=== PATIENT | male | born 1960 | race Caucasian/White ===

== ENCOUNTER → 2019-10-15 15:40 | Outpatient (BNVA) | payer BC, SELFPAY | PROVIDERS: PCP Family Medicine; Visit Provider Urology | DX: N40.1 Benign prostatic hyperplasia with lower urinary tract symptoms (principal) | CPT/HCPCS: 81001 ==

== ENCOUNTER → 2020-10-13 10:22 | Outpatient (BNVA) | payer BC, SELFPAY | PROVIDERS: PCP Family Medicine; Visit Provider Urology | DX: Z12.5 Encounter for screening for malignant neoplasm of prostate (principal); N40.1 Benign prostatic hyperplasia with lower urinary tract symptoms; R33.9 Retention of urine, unspecified | CPT/HCPCS: 81003; G0103 ==

== ENCOUNTER 2021-05-24 15:51 | Outpatient (CLI) | payer OTHER, SELFPAY ==
--- NOTE | 2021-05-24 15:55 | MR_ITS ---
WS: [id number] MRI RIGHT SHOULDER NONCONTRAST TECHNIQUE: Sagittal T2, coronal T1, T2 and proton density imaging. Axial gradient PDE imaging. CLINICAL INFORMATION: ROTATOR CUFF ARTHROPATHY OF RIGHT SHOULDER COMPARISON: None. FINDINGS: Mild degenerative arthritis at the AC joint with mild downsloping acromion. Subacromial spurring with mild narrowing of the subacromial space. Mild edema at the AC joint. Mild subacromial/subdeltoid flu id. Tendinopathy involving the distal supraspinatus with chronic thinning. Undersurface tear involvin g the distal supraspinatus and supraspinatus insertion. Tendinopathy in the distal supraspinatus. Calcific tendinitis involving the infraspinatus. Infraspinatus is intact. Normal teres minor. Chronic thinning of the subscapularis. Subscapularis tendon is intact. Small intrasubstance tear involving t he distal subscapularis at the humeral insertion. Normal biceps tendon in the bicipital groove. Sligh t medial subluxation of the biceps tendon proximally. Small joint effusion. Intra-articular biceps tendon appears intact. Biceps labral anchor appears intact. Degenerative frayi ng of the glenoid labrum. Tear involving the anterior inferior glenoid labrum with subchondral cystic change involving the anterior inferior bony glenoid. Recommend correlation for instability. Labrum o therwise appears grossly intact. MR/MR shoulder RT wo con* [id number] IMPRESSION: 1. Irregular tear involving the anterior inferior glenoid labrum with underlyi ng subchondral cystic change in the glenoid. Recommend correlation for instabil ity. 2. Mild degenerative arthritis at the AC joint with subacromial/subdeltoid flu id. Mild downsloping of the acromion with subacromial spurring. 3. Small undersurface tears involving the distal supraspinatus with chronic th inning. 4. Calcific tendinitis infraspinatus. 5. Small intrasubstance tear involving the distal subscapularis tendon at the humeral insertion. 6. Biceps tendon appears intact in the bicipital groove with mild medial sublu xation proximally. 7. Small joint effusion.
== END 2021-05-24 15:52 | disposition home or self-care (01) ==
PROVIDERS: PCP Family Medicine; Visit Provider Family Medicine
DX: M12.811 Other specific arthropathies, not elsewhere classified, right shoulder (principal); M25.411 Effusion, right shoulder
CPT/HCPCS: 73221

== ENCOUNTER → 2022-06-13 14:44 | Outpatient (BNVA) | payer OTHER, SELFPAY | PROVIDERS: PCP Family Medicine; Referring Provider Dermatology; Visit Provider Podiatrist Foot & Ankle Surgery | DX: M20.21 Hallux rigidus, right foot (principal); M20.22 Hallux rigidus, left foot; M20.41 Other hammer toe(s) (acquired), right foot; M20.42 Other hammer toe(s) (acquired), left foot; M19.071 Primary osteoarthritis, right ankle and foot; M19.072 Primary osteoarthritis, left ankle and foot; E11.40 Type 2 diabetes mellitus with diabetic neuropathy, unspecified; L90.9 Atrophic disorder of skin, unspecified | CPT/HCPCS: 73630 ==

== ENCOUNTER 2022-06-30 05:42 | Day surgery (SDC) | payer OTHER, SELFPAY ==
[2022-06-28 14:52] VITALS: BMI 34.2
[2022-06-30] VITALS (7 sets, daily range): BP systolic 110–164; BP diastolic 77–91; PULSE 61–79; RESP 15–21; TEMP 36.1–36.6; O2SAT 97–100
--- NOTE | 2022-06-30 | SCC_ITS ---
Procedure done: Right foot first metatarsophalangeal joint arthrodesis CPT 09535 - seconds of fluoroscopic guidance, for a cumulative dose of - mGy, was provided to - by the radiology department. C-arm images of the - were saved for the patient's permanent record. [facility]
[2022-06-30 06:18] LABS: Glucose Point of Care 134 mg/dL (70-110)
[2022-06-30] MEDS: CELEcoxib 200 mg Capsule 400 MG PO (06:19)
[2022-06-30] MEDS: gabapentin 300 mg Capsule PO (06:19)
[2022-06-30] MEDS: sodium chloride 0.9% 1,000 ML 30 ML IV (06:20)
--- NOTE | 2022-06-30 06:27 | ANES.PREANE2 ---
Pre-Anesthetic Assessment Height/Weight: Height 1.85 m Weight 117.934 kg Temp Pulse Resp BP Pulse Ox O2 Del Method 97.7 F 76 15 164/91 98 06/30/22 06:09 06/30/22 06:09 06/30/22 06:09 06/30/22 06:09 06/30/22 06:09 06/30/22 06:09 Preop Diagnosis: Right foot hallux rigidus Operation Date: 06/30/22 07:00 Proposed Procedures p Right foot 1st metatarsophalangeal joint arthrodesis CPT 75772 M20.21(Right) - Chema Hathaway DPM Familial anesthetic complications: None Was Beta Roni taken within 24 hours: N/A Was Clonidine taken within 24 hours: N/A Last intake: Intake Last Liquid Date 06/29/22 Last Liquid Time 19:30 Last Solid Date 06/29/22 Last Solid Time 19:30 Social Alcohol (3 cans of beer a night) and No tobacco Exam alert, oriented x 3, clear to auscultation bilaterally and regular rate & rhythm Airway Mallampati: Class III Dentition: false CV/HEM Hypertension Metabolic Diabetes Mellitus Anesthetic Plan ASA status: 3 Anesthesia: MAC Risk of > 500 ml blood loss (7ml/kg in children): No Medications/Allergies Home Medications Medication Instructions Recorded Confirmed Last Taken Type aspirin 325 mg tablet 325 mg PO DAILY 10/15/19 06/30/22 06/29/22 History lisinopril 20 1 tab PO DAILY 10/15/19 06/30/22 06/29/22 History mg-hydrochlorothiazide 12.5 mg tablet multivitamin (Daily Multi-Vitamin 1 tab PO DAILY 10/15/19 06/30/22 06/29/22 History tablet) simvastatin 20 mg tablet 20 mg PO DAILY 10/15/19 06/30/22 06/29/22 History finasteride 5 mg tablet 5 mg PO DAILY 06/30/22 06/30/22 06/29/22 History metformin 500 mg tablet 1,000 mg PO DAILY 06/30/22 06/30/22 06/29/22 History Allergies Allergy/AdvReac Type Severity Reaction Status Date / Time No Known Allergies Allergy Verified 06/30/22 06:01 Current Medications Generic Name Dose Route Start Last Admin Trade Name Freq PRN Reason Stop Dose Admin Sodium Chloride 1,000 mls @ 30 mls/hr 06/30/22 06:00 06/30/22 06:20 Sodium Chloride 0.9% IV 07/01/22 05:59 30 mls/hr .Q24H CHARY Administration PFSH Anesthesia Medical History (Updated 06/13/22 @ 15:54 by Chema Hathaway DPM) BPH loc w urin obs/LUTS Urinary retention Surgical History (Updated 04/23/21 @ 15:53 by Mikalya Godoy) S/P knee surgery Family History (System 04/23/21 @ 15:53 by Mikayla Godoy) Family/Other CAD (coronary artery disease) Hypertension Cancer Social History (System 04/23/21 @ 15:53 by Mikayla Godoy) Smoking and tobacco status: never smoked Alcohol intake: current Alcohol intake frequency: few times a month Marital status: Current occupational status: employed History of recent travel: No Data Anesthesia : 06/30/22 06:15 Cardiac Studies: No Data to Display
--- NOTE | 2022-06-30 06:43 | W.PM.OPSUD ---
Surgery/Procedure H&P Update DATE OF PROCEDURE: June 30, 2022 DATE H&P PERFORMED: 06/13/22 CHANGES TO PREVIOUS DOCUMENTATION: No changes to previous documentation PREOP DIAGNOSIS: Right foot hallux rigidus PRIMARY INDICATION FOR PROCEDURE: Right foot hallux rigidus PLANNED PROCEDURE: Operation Date: 06/30/22 07:00 Proposed Procedures p Right foot 1st metatarsophalangeal joint arthrodesis CPT 83972 M20.21(Right) - Chema Hathaway DPM
[2022-06-30] MEDS: ceFAZolin 2,000 MG in sodium chloride 0.9% (plus) 50 ML 100 MG IV (06:52)
[2022-06-30] MEDS: HYDROcodone-acetaminophen 5-325 mg Tablet 1 TAB PO (09:38)
--- NOTE | 2022-06-30 11:40 | P.OP_ITS ---
Operative Report Date of procedure: June 30, 2022 Pre-op diagnosis: Preop Diagnosis Right foot hallux rigidus Post-op diagnosis: Same Post-op findings: Advanced degenerative joint disease of the right first metatarsophalangeal joint Procedure done: Right foot first metatarsophalangeal joint arthrodesis CPT 05758 Implants: Size medium 0 degree first metatarsophalangeal joint arthrodesis plate from [place] 28 with corresponding 3.5 mm locking screws and one 3.0 cannulated short thread screw Specimens removed/disposition: None Pathology: None Surgeon: Dr. Chema Hathaway, D.P.M. Estimated blood loss: 10 cc 86 minutes Complications: None Findings: See above Brief History: Patient had hallux rigidus of the right first metatarsophalangeal joint which cause extreme pain and limited his activities of daily living. Conservative treatment measures were attempted and the patient has opted for surgical correction at this time. Procedure: Patient is a 62-year-old male that has a history of right foot hallux rigidus. The patient has had the aforementioned chief complaint for some time. Conservative treatment measures have been attempted and the patient has opted for surgical intervention at thistime. A lengthy discussion regarding the procedure, including risks and complications has been had with the patient and is noted in the recent clinic note. Written and verbal consent have been obtained. All patient questions have been answered to the patient?s satisfaction. No written or verbal guarantees have been given or implied. The patient has been NPO since midnight. The history has been reviewed and the history and physical is current. The signed consent was confirmed and placed in the patient chart. Patient imaging has been reviewed and is consistent with thediagnosis. Under mild sedation, the patient was brought into the operating room and placed on the table in the supine position. IV antibiotics were given by the anesthesia team as preoperative surgical prophylaxis. IV sedation was then performed by the anesthesia team. A standard Andrews block was then performed using 30 cc of 0.5% Marcaine plain A pneumatic tourniquet was then placed about the right ankle. The operative extremity was then prepped and draped in the usual fashion. The extremity was then elevated and exsanguinated before the tourniquet was inflated to 250 mmHg. After inflation, the following procedure was then performed. Attention was directed to the right foot where a 7 cm vision was made over the dorsomedial aspect of the first metatarsophalangeal joint. Dissection was carried down through subcutaneous and superficial fascia to the level of the first metatarsophalangeal joint capsule. The capsule was incised using a #15 blade straight down to bone to expose the first metatarsophalangeal joint. There is noted to be significant amount of periarticular osteophyte formation as well as dorsal and lateral exostosis of the first metatarsophalangeal joint. The cartilage from the first metatarsal head was noted to be completely eroded away. Dissection was carried out to fully expose the first metatarsophalangeal joint and plantar flex the proximal phalanx. A rongeur was used to remove periarticular osteophytes. Next, a guidewire was driven into the head of the first metatarsal in preparation for reaming. Next a concave reamer was used to ream the head and distal articular surface of the first metatarsal. All remaining cartilage of the joint was removed. Next, the wire was removed and driven into the base the proximal phalanx. Next a convex reamer was used to ream the articular cartilage from the base the proximal phalanx. After removal of the cartilage, the site was irrigated with copious muscle sterile saline. A McGlamry elevator was used to free up the sesamoid apparatus. Good release was felt and heard. After irrigation, the head of the first metatarsal and base the proximal phalanx were fenestrated using a 2.0 fenestration drill bit from [place] 28. The hallux was then positioned in the appropriate position before being temporally fixated with a guidewire. A 0 degree size medium first metatarsal phalangeal joint arthrodesis plate from [place] 28 was positioned over the first metatarsal phalangeal joint. It was temporally fixated with a guidewire. Good position of the hallux was noted clinically as well as on C-arm imaging. A guidewire for a 3.0 cannulated short thread screw was driven across the arthrodesis site. This wire was measured countersunk and drilled before a 3.0 mm short threaded headed screw from [place] 28 was driven across the arthrodesis site. Good compression of the screw was noted. Attention was then directed to the dorsal plate. The distal holes of the plate were drilled and filled in standard fashion using 3.5 mm locking screws. The eccentric drill hole the proximal aspect of the plate was then drilled and filled. Good compression across the arthrodesis site was noted. The remaining holes of the plate were drilled and filled in standard fashion using 3.5 mm locking screws. The site was irrigated with copious muscle sterile saline. Attention was then directed to closure. Deep tissue was closed with 3-0 Vicryl followed by subcuticular closure with 4-0 Vicryl and skin closure with 4-0 nylon in horizontal mattress fashion. The tourniquet was let down good hyperemic response was noted to all digits of the right foot. The incision site was further anesthetized using 20 cc of Exparel. Incision site was then dressed with Xeroform 4 x 4 gauze Kerlix before being placed in a well-padded below the knee posterior splint. The patient tolerated the procedure and anesthesia well and without complication. The patient was transported from the operating room to the recovery room with vital signs stable and vascular status intact to all digits of the right foot. The patient was given both written and verbal instructions to remain nonweightbearing to the operative extremity, to keep dressings/splint clean, dry and intact and to take pain medication as directed. The patient will follow-up in the outpatient setting at their scheduled appointment. The patient was discharged with my personal number and was instructed to call if any questions or issues should arise. They were discharged home once anesthesia criteria was met.
--- NOTE | 2022-06-30 13:36 | ANE.PACU2 ---
Inpatient post-anesthesia follow up: Airway intact: Yes Vital signs: Temperature 97.0 F Pulse Rate 61 Respiratory Rate 18 Blood Pressure 124/77 Pulse Oximetry 100 Oxygen Delivery Me thod Room Air Oxygen Flow Rate 6 Fraction of Inspir ed Oxygen Hydration adequate: Yes Nausea and vomiting: No Pain level: 1 Mental status: Baseline
== END 2022-06-30 10:15 | disposition home or self-care (01) ==
PROVIDERS: PCP Family Medicine; Visit Provider Podiatrist Foot & Ankle Surgery
PROC: (CPT 28740; principal; 2022-06-30 07:00)
DX: M20.21 Hallux rigidus, right foot (principal); I10 Essential (primary) hypertension; E11.9 Type 2 diabetes mellitus without complications; Z79.84 Long term (current) use of oral hypoglycemic drugs; Z79.82 Long term (current) use of aspirin; N40.1 Benign prostatic hyperplasia with lower urinary tract symptoms; N13.8 Other obstructive and reflux uropathy
CPT/HCPCS: 28750; 36416; 82962; C1713; C9290; J0690; J2370; J2704; J3010; J3490; J7030

== ENCOUNTER → 2022-07-06 13:59 | Outpatient (BNVA) | payer OTHER, SELFPAY | PROVIDERS: PCP Family Medicine; Visit Provider Podiatrist Foot & Ankle Surgery | DX: M20.21 Hallux rigidus, right foot (principal); M20.22 Hallux rigidus, left foot; M20.41 Other hammer toe(s) (acquired), right foot; M20.42 Other hammer toe(s) (acquired), left foot; M19.071 Primary osteoarthritis, right ankle and foot; M19.072 Primary osteoarthritis, left ankle and foot; E11.40 Type 2 diabetes mellitus with diabetic neuropathy, unspecified; L90.9 Atrophic disorder of skin, unspecified | CPT/HCPCS: 73630 ==

== ENCOUNTER 2022-07-06 15:13 | Outpatient (CLI) | payer OTHER, SELFPAY | END 2022-07-06 15:14 | disposition home or self-care (01) | LOC: SPT 15:14 | PROVIDERS: PCP Family Medicine; Visit Provider Podiatrist Foot & Ankle Surgery | DX: Z47.89 Encounter for other orthopedic aftercare (principal); M79.671 Pain in right foot | CPT/HCPCS: 97760; L4361 ==

== ENCOUNTER → 2022-07-19 08:50 | Outpatient (BNVA) | payer OTHER, SELFPAY | PROVIDERS: PCP Family Medicine; Visit Provider Podiatrist Foot & Ankle Surgery | DX: Z98.890 Other specified postprocedural states (principal); M20.21 Hallux rigidus, right foot; M20.22 Hallux rigidus, left foot; M20.41 Other hammer toe(s) (acquired), right foot; M20.42 Other hammer toe(s) (acquired), left foot; M19.071 Primary osteoarthritis, right ankle and foot; M19.072 Primary osteoarthritis, left ankle and foot; E11.40 Type 2 diabetes mellitus with diabetic neuropathy, unspecified; L90.9 Atrophic disorder of skin, unspecified | CPT/HCPCS: 73630 ==

== ENCOUNTER → 2022-08-05 13:43 | Outpatient (BNVA) | payer OTHER, SELFPAY | PROVIDERS: PCP Family Medicine; Visit Provider Podiatrist Foot & Ankle Surgery | DX: M20.21 Hallux rigidus, right foot (principal); M20.22 Hallux rigidus, left foot; M20.41 Other hammer toe(s) (acquired), right foot; M20.42 Other hammer toe(s) (acquired), left foot; M19.071 Primary osteoarthritis, right ankle and foot; M19.072 Primary osteoarthritis, left ankle and foot; E11.40 Type 2 diabetes mellitus with diabetic neuropathy, unspecified; L90.9 Atrophic disorder of skin, unspecified; Z79.84 Long term (current) use of oral hypoglycemic drugs | CPT/HCPCS: 73630 ==

== ENCOUNTER → 2022-08-12 11:05 | Outpatient (BNVA) | payer OTHER, SELFPAY | PROVIDERS: PCP Family Medicine; Visit Provider Podiatrist Foot & Ankle Surgery | DX: M20.21 Hallux rigidus, right foot (principal); M20.22 Hallux rigidus, left foot; M20.41 Other hammer toe(s) (acquired), right foot; M20.42 Other hammer toe(s) (acquired), left foot; M19.071 Primary osteoarthritis, right ankle and foot; M19.072 Primary osteoarthritis, left ankle and foot; E11.40 Type 2 diabetes mellitus with diabetic neuropathy, unspecified; L90.9 Atrophic disorder of skin, unspecified; M79.671 Pain in right foot; M79.672 Pain in left foot; Z79.84 Long term (current) use of oral hypoglycemic drugs | CPT/HCPCS: 73630 ==

== ENCOUNTER → 2022-08-18 06:17 | Day surgery (SDC) | payer OTHER, SELFPAY ==
[2022-08-17 12:53] VITALS: BMI 34.8
--- NOTE | 2022-08-18 | XR_ITS ---
WS: [id number] Exam: XR foot LT 2V [id number] Date/Time of Exam: 08/18/2022 12:00 AM Reason For Exam: 1st metatarsophalangeal arthrodesis Single AP image of the left foot is submitted for evaluation. There is arthrodesis of the first MP joint with plate and screw fixation. An additional oblique cours ing screw is seen over the joint. No other significant finding on this limited image.
[2022-08-18 07:02] VITALS: BP 144/88; PULSE 85; RESP 18; TEMP 37.1; O2SAT 95
[2022-08-18 07:07] LABS: Glucose Point of Care 117 mg/dL (70-110)
[2022-08-18] MEDS: sodium chloride 0.9% 1,000 ML 30 ML IV (07:09)
[2022-08-18] MEDS: gabapentin 300 mg Capsule PO (07:10)
[2022-08-18] MEDS: CELEcoxib 200 mg Capsule 400 MG PO (07:10)
--- NOTE | 2022-08-18 09:00 | W.PM.OPSUD ---
Surgery/Procedure H&P Update DATE OF PROCEDURE: August 18, 2022 DATE H&P PERFORMED: 08/12/22 CHANGES TO PREVIOUS DOCUMENTATION: no changes PREOP DIAGNOSIS: Left foot hallux rigidus PLANNED PROCEDURE: Operation Date: 08/18/22 08:20 Proposed Procedures p Left 1st metatarsophalangeal joint arthrodesis CPT 44398(Left) - Chema Hathaway DPM
[2022-08-18] MEDS: ceFAZolin 2,000 MG in sodium chloride 0.9% (plus) 50 ML 100 MG IV (09:14)
--- NOTE | 2022-08-18 09:32 | ANES.PREANE2 ---
Pre-Anesthetic Assessment Height/Weight: Height 1.85 m Weight 119.748 kg Temp Pulse Resp BP Pulse Ox O2 Del Method 98.8 F 85 18 144/88 95 08/18/22 07:02 08/18/22 07:02 08/18/22 07:02 08/18/22 07:02 08/18/22 07:02 08/18/22 07:02 Preop Diagnosis: Left foot hallux rigidus Operation Date: 08/18/22 08:20 Proposed Procedures p Left 1st metatarsophalangeal joint arthrodesis CPT 92456(Left) - Chema Hathaway DPM Familial anesthetic complications: none Was Beta Roni taken within 24 hours: N/A Was Clonidine taken within 24 hours: N/A Last intake: Intake Last Liquid Date 08/17/22 Last Liquid Time 21:00 Last Solid Date 08/17/22 Last Solid Time 19:00 Social No alcohol and No tobacco Exam alert, oriented x 3, clear to auscultation bilaterally and regular rate & rhythm Airway Submandibular: within normal limits Cervical ROM: within normal limits Mallampati: Class II Dentition: false Pulmonary Asthma and Sleep Apnea CV/HEM Hypertension Metabolic Diabetes Mellitus, Hyperlipidemia and Morbid Obesity Anesthetic Plan ASA status: 3 Anesthesia: Choice Medications/Allergies Home Medications Medication Instructions Recorded Confirmed Last Taken Type aspirin 325 mg tablet 325 mg PO DAILY 10/15/19 08/17/22 08/17/22 History lisinopril 20 1 tab PO DAILY 10/15/19 08/17/22 08/17/22 History mg-hydrochlorothiazide 12.5 mg tablet multivitamin (Daily Multi-Vitamin 1 tab PO DAILY 10/15/19 08/17/22 08/17/22 History tablet) simvastatin 20 mg tablet 20 mg PO DAILY 10/15/19 08/17/22 08/17/22 History finasteride 5 mg tablet 5 mg PO DAILY 06/30/22 08/17/22 08/17/22 History metformin 500 mg tablet 1,000 mg PO DAILY 06/30/22 08/17/22 08/16/22 History cam boot #1 ea 07/06/22 08/16/22 Unknown Rx budesonide 160 mcg-glycopyr 9 2 inh inhalation BID 08/05/22 08/17/22 08/17/22 History mcg-formot 4.8 mcg/actuation HFA inhaler (Breztri Aerosphere) hydrocodone 5 mg-acetaminophen 325 1 tab PO Q6H 7 days #28 tabs 08/18/22 Unknown Rx mg tablet Allergies Allergy/AdvReac Type Severity Reaction Status Date / Time No Known Allergies Allergy Verified 08/18/22 06:55 Current Medications Generic Name Dose Route Start Last Admin Trade Name Freq PRN Reason Stop Dose Admin Sodium Chloride 1,000 mls @ 30 mls/hr 08/18/22 07:00 08/18/22 07:09 Sodium Chloride 0.9% IV 08/19/22 06:59 30 mls/hr .Q24H CHARY Administration PFSH Anesthesia Medical History BPH loc w urin obs/LUTS Urinary retention Surgical History S/P knee surgery Family History Family/Other CAD (coronary artery disease) Hypertension Cancer Social History Smoking and tobacco status: never smoked Alcohol intake: current Alcohol intake frequency: few times a month Marital status: Current occupational status: employed History of recent travel: No Data Anesthesia Cardiac Studies: No Data to Display
[2022-08-18 10:40] VITALS: BP 121/85; PULSE 75; RESP 15; TEMP 36.4; O2SAT 94
[2022-08-18 10:45] VITALS: BP 119/76; PULSE 71; RESP 16; O2SAT 96
[2022-08-18 10:54] VITALS: BP 118/79; PULSE 77; RESP 18; TEMP 36.6; O2SAT 97
[2022-08-18] MEDS: HYDROcodone-acetaminophen 5-325 mg Tablet 1 TAB PO (11:03)
[2022-08-18 11:05] VITALS: BP 111/78; PULSE 70; RESP 18; TEMP 36.6; O2SAT 97
--- NOTE | 2022-08-18 11:08 | PM.OP ---
Operative Report Date of procedure: August 18, 2022 Pre-op diagnosis: Preop Diagnosis Left foot hallux rigidus Post-op diagnosis: Same Post-op findings: Degenerative first metatarsophalangeal joint of the left foot consistent with hallux rigidus Procedure done: Left first metatarsophalangeal joint arthrodesis CPT 92295 Implants: Left foot first MTP fusion plate from [place] 28 with corresponding 3.5 and 2.7 mm locking and nonlocking screws Surgeon: Dr. Chema Hathaway, D.P.M. Estimated blood loss: Less than 10 cc 52 minutes Complications: None Findings: See above Procedure: Patient is a 62-year-old male that has a history of left foot hallux rigidus. The patient has had the aforementioned chief complaint for some time. Conservative treatment measures have been attempted and the patient has opted for surgical intervention at this time. A lengthy discussion regarding the procedure, including risks and complications has been had with the patient and is noted in the recent clinic note. Written and verbal consent have been obtained. All patient questions have been answered to the patient?s satisfaction. No written or verbal guarantees have been given or implied. The patient has been NPO since midnight. The history has been reviewed and the history and physical is current. The signed consent was confirmed and placed in the patient chart. Patient imaging has been reviewed and is consistent with the diagnosis. Under mild sedation, the patient was brought into the operating room and placed on the table in the supine position. IV antibiotics were given by the anesthesia team as preoperative surgical prophylaxis. IV sedation was then performed by the anesthesiateam. A local field block was then performed using 30 cc of 0.5% Marcaine plain. A pneumatic tourniquet was then placed about the left ankle. The operative extremity was then prepped and draped in the usual fashion. The extremity was then elevated and exsanguinated before the tourniquet was inflated to 250 mmHg. After inflation, the following procedure was then performed. Attention was directed to the left first metatarsophalangeal joint where a 6 cm incision was made dorsally using a #15 blade. Dissection was carried down through subcutaneous and superficial fascia to the level of the first metatarsophalangeal joint capsule. Any bleeders were cauterized as necessary using electrocautery. Care was taken to preserve the extensor hallucis longus tendon as well as the medial neurovascular bundle. #15 blade was used to incise the first metatarsophalangeal joint thus exposing the underlying first metatarsal phalangeal joint. Dissection was further carried out using a #15 blade to expose the entirety of the first metatarsophalangeal joint and the head of the first metatarsal. There was noted to be erosive changes in the head of the first metatarsal consistent with arthritis. There is also noted to be periarticular spurring. Using a sagittal bone saw the osteophytes at the first metatarsal head were removed and passed from the operative field. A McGlamry elevator was used to free the sesamoid apparatus plantarly. Next a 0.062 K wire was driven into the head of the first metatarsal centrally before a concave reamer was placed over the wire and used to ream the first metatarsal head. After reaming, all articular cartilage from the head of the first metatarsal was noted to be removed duration for arthrodesis. Next a 0.062 K wire was removed and driven into the base the proximal phalanx centrally. A corresponding convex reamer was used to remove the articular cartilage from the base the proximal phalanx preparation for arthrodesis. Next the site was irrigated with copious muscle sterile saline before K wire was used to fenestrate the head of first metatarsal base the proximal phalanx. The hallux was then positioned into the appropriate position clinically as well as radiographically which was confirmed on C-arm fluoroscopy. The dorsal first metatarsophalangeal joint plate from [place] 28 was then positioned into the appropriate position and temporarily fixated using olive wires. Good positioning of the plate was noted clinically as well as on C-arm imaging. A 3.5 mm lag screw was then driven across the arthrodesis site to provide compression and a distal medial to proximal lateral orientation. The first metatarsophalangeal joint arthrodesis plate was then drilled and filled in standard fashion. Final C arm images were obtained to confirm the positioning of the plate and screws, they were noted to be in the appropriate position. The patient tolerated the procedure and anesthesia well and without complication. The patient was transported from the operating room to the recovery room with vital signs stable and vascular status intact to all digits of the left foot. The patient was given both written and verbal instructions to remain [ ] to the operative extremity, to keep dressings/splint clean, dry and intact and to take pain medication as directed. The patient will follow-up in the outpatient setting at their scheduled appointment. The patient was discharged with my personal number and was instructed to call if any questions or issues should arise. They were discharged home once anesthesia criteria was met.
[2022-08-18 11:22] VITALS: BP 131/78; PULSE 87; RESP 18; TEMP 36.6; O2SAT 95
--- NOTE | 2022-08-18 12:10 | ANE.PACU2 ---
Inpatient post-anesthesia follow up: Airway intact: Yes Vital signs: Temperature 97.8 F Pulse Rate 87 Respiratory Rate 18 Blood Pressure 131/78 Pulse Oximetry 95 Oxygen Delivery Me thod Room Air Oxygen Flow Rate Fraction of Inspir ed Oxygen Hydration adequate: Yes Nausea and vomiting: No Pain level: 1 Mental status: Baseline
== END | disposition home or self-care (01) ==
PROVIDERS: PCP Family Medicine; Visit Provider Podiatrist Foot & Ankle Surgery
PROC: (CPT 28740; principal; 2022-08-18 08:10)
DX: M20.22 Hallux rigidus, left foot (principal); J45.909 Unspecified asthma, uncomplicated; G47.30 Sleep apnea, unspecified; I10 Essential (primary) hypertension; E11.9 Type 2 diabetes mellitus without complications; E66.01 Morbid (severe) obesity due to excess calories; Z68.34 Body mass index [BMI] 34.0-34.9, adult; E78.5 Hyperlipidemia, unspecified
CPT/HCPCS: 28750; 36416; 73620; 76000; 82962; C1713; J0690; J2704; J3010; J3490; J7030

== ENCOUNTER → 2022-09-02 14:30 | Outpatient (BNVA) | payer OTHER, SELFPAY | PROVIDERS: PCP Family Medicine; Visit Provider Podiatrist Foot & Ankle Surgery | DX: M20.21 Hallux rigidus, right foot (principal); M20.22 Hallux rigidus, left foot; M20.41 Other hammer toe(s) (acquired), right foot; M20.42 Other hammer toe(s) (acquired), left foot; M19.071 Primary osteoarthritis, right ankle and foot; M19.072 Primary osteoarthritis, left ankle and foot; E11.40 Type 2 diabetes mellitus with diabetic neuropathy, unspecified; L90.9 Atrophic disorder of skin, unspecified; Z79.84 Long term (current) use of oral hypoglycemic drugs | CPT/HCPCS: 73630 ==

== ENCOUNTER → 2022-09-16 13:31 | Outpatient (BNVA) | payer OTHER, SELFPAY | PROVIDERS: PCP Family Medicine; Visit Provider Podiatrist Foot & Ankle Surgery | DX: Z98.890 Other specified postprocedural states (principal); M20.21 Hallux rigidus, right foot; M20.41 Other hammer toe(s) (acquired), right foot; M20.42 Other hammer toe(s) (acquired), left foot; M19.071 Primary osteoarthritis, right ankle and foot; M19.072 Primary osteoarthritis, left ankle and foot; E11.40 Type 2 diabetes mellitus with diabetic neuropathy, unspecified; L90.9 Atrophic disorder of skin, unspecified; Z79.84 Long term (current) use of oral hypoglycemic drugs; M20.22 Hallux rigidus, left foot | CPT/HCPCS: 73630 ==

== ENCOUNTER → 2022-09-30 14:07 | Outpatient (BNVA) | payer OTHER, SELFPAY | PROVIDERS: PCP Family Medicine; Visit Provider Podiatrist Foot & Ankle Surgery | DX: M20.21 Hallux rigidus, right foot (principal); Z98.890 Other specified postprocedural states; M20.22 Hallux rigidus, left foot; M20.41 Other hammer toe(s) (acquired), right foot; M20.42 Other hammer toe(s) (acquired), left foot; M19.071 Primary osteoarthritis, right ankle and foot; M19.072 Primary osteoarthritis, left ankle and foot; E11.40 Type 2 diabetes mellitus with diabetic neuropathy, unspecified; L90.9 Atrophic disorder of skin, unspecified | CPT/HCPCS: 73630 ==

== ENCOUNTER → 2022-10-26 15:10 | Outpatient (BNVA) | payer OTHER, SELFPAY | PROVIDERS: PCP Family Medicine; Visit Provider Podiatrist Foot & Ankle Surgery | DX: M20.21 Hallux rigidus, right foot (principal); M20.22 Hallux rigidus, left foot; Z98.890 Other specified postprocedural states; M20.41 Other hammer toe(s) (acquired), right foot; M20.42 Other hammer toe(s) (acquired), left foot; M19.071 Primary osteoarthritis, right ankle and foot; M19.072 Primary osteoarthritis, left ankle and foot; E11.40 Type 2 diabetes mellitus with diabetic neuropathy, unspecified; L90.9 Atrophic disorder of skin, unspecified; Z79.84 Long term (current) use of oral hypoglycemic drugs | CPT/HCPCS: 73630 ==

== ENCOUNTER 2024-01-12 13:45 | Inpatient (IN) | payer OTHER, SELFPAY ==
[2024-01-12 13:57] VITALS: BP 131/80; PULSE 69; RESP 16; TEMP 36.9; O2SAT 97; BMI 34.7
--- NOTE | 2024-01-12 14:43 | ED_ITS ---
HPI - General Adult 2 General: Chief complaint: General Medical Stated complaint: dr cook for fluids Time Seen by Provider: 01/12/24 14:27 Source: patient Mode of arrival: ambulatory History of Present Illness: 63-year-old male presents to the emergen cy room from his doctor's office. He seen the doctor's office health contiguous dermatomes of varicella-zoster that began about 4 days ago. He has moderate pain with that has been progressively worsening, he still has new lesions forming. 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 The oldest lesions appear to be in the scalp extend down to the upper chest. He is diabetic and has a history of hypertension. No other immune compromise status beyond his diabetes which is treated only with metformin. Onset (ago): day(s) (4) Location: head, face and neck Severity: moderate Quality: burning Pain Consistency: constant Relieving factors: none Exacerbating factors: none Associated symptoms: Reports rash; Deny chest pain, confusion, cough, diaphoresis, decreased appetite, dyspnea, fevers/chills, headache(s), malaise, nausea, palpitations, seizures, short of breath, syncope, vomiting or weakness Review of Systems 2 Const: Denies: malaise or diaphoresis Card: Denies: chest pain, palpitations or syncope Resp: Denies: dyspnea GI: Denies: nausea or vomiting : Denies: dysuria, urinary frequency or urinary urgency Musc: Denies: neck pain or back pain Skin/Breast: Reports: rash Neuro: Denies: headache(s) or confusion PFSH ED 2 PFSH: Medical History Urinary retention BPH loc w urin obs/LUTS Surgical History S/P knee surgery Family History Family/Other CAD (coronary artery disease) Hypertension Cancer Social History Smoking and tobacco/nicotine status: never used tobacco/nicotine Alcohol intake: current Alcohol intake frequency: few times a month Substance/Drug Use: never Marital status: Current occupational status: employed Physical Exam 2 Const: GENERAL APPEARANCE: cooperative ORIENTATION/CONSCIOUSNESS: Yes awake, Yes oriented to person, Yes oriented to place and Yes oriented to time HENMT: COMMON NORMALS: normocephalic, atraumatic and hearing grossly normal bilaterally HEAD & SCALP: normocephalic and atraumatic Resp: COMMON NORMALS: normal respiratory effort, No retractions, No use of accessory muscles and clear to auscultation bilaterally AUSCULTATION: clear to auscultation bilaterally Cardio: COMMON NORMALS: regular rate, regular rhythm and No murmurs present (Cardio) RATE: regular rate RHYTHM: regular rhythm GI: COMMON NORMALS: Soft to palpation and No hepatosplenomegaly present A USCULTATION: Yes normoactive bowel sounds PALPATION: Yes Soft to palpation, No Tenderness to palpation present (GI), No Guarding due to palpation present (GI) and Yes No hepatosplenomegaly present Extremity: COMMON NORMALS: normal to inspection, capillary refill normal, no clubbing, cyanosis or edema, no calf tenderness and no pedal edema Neuro: SENSORIUM/ORIENTATION: Yes oriented to person, Yes oriented to place and Yes oriented to time Skin: OTHER: Rash consistent with varicella-zoster. None at the tip of the nose or in the ear canal. Course 2 Vital Signs: Vital signs: Vital Signs Temperature 97.4 F L 01/13/24 16:19 Pulse Rate 16 L 01/13/24 16:19 Respiratory Rate 18 01/13/24 16:19 Blood Pressure 165/87 01/13/24 16:19 Pulse Oximetry 99 01/13/24 16:19 Oxygen Delivery Me thod Room Air 01/13/24 16:19 MDM - General Adult Medical Decision Making Patient has disseminated zoster. Is in for dermatomes. He has not particularly immunocompromise. We did attempt to make arrangements for outpatient IV acyclovir. I discussed with his primary care doctor he felt that would be adequate as well however we are unable to get this approved prior to the end of the day. He does not have sign of Krista Wilkerson at this point. Talk to Dr. Dickens he done a fluorescein test in his cornea was clear. Patient will be admitted to inpatient IV antiviral therapy discussed Dr. Menjivar orders written Medical Records I reviewed the patient's medical records. Lab Data I reviewed the patient's lab results. 01/13/24 05:46 01/13/24 05:46 Laboratory Results WBC 5.11 10^3/uL (3.29-11.43) 01/12/24 15: RBC 4.95 10^6/uL (3.85-5.65) 01/12/24 15:23 Hgb 13.80 g/dL (11.27-16.99) 01/12/24 15:23 Hct 41.7 % (37-53) 01/12/24 15:23 MCV 84.2 fl (82-101) 01/12/24 15:23 MCH 27.9 pg (27-33) 01/12/24 15: MCHC 33.1 g/dL (30-55) 01/12/24 15: RDW 13.7 % (12.1-15.1) 01/12/24 15: Plt Count 256 10^3/cmm (157-399) 01/12/24 15: MPV 9.4 fL (7.4-10.4) 01/12/24 15:23 Neut % (Auto) 51.4 % 01/12/24 15:23 Lymph % (Auto) 26.4 % 01/12/24 15:23 Mcintosh % (Auto) 10.6 % 01/12/24 15:23 Eos % (Auto) 10.8 % 01/12/24 15:23 Baso % (Auto) 0.6 % 01/12/24 15:23 Neut # (Auto) 2.63 10^3/uL (1.8-7.7) 01/12/24 15:23 Lymph # (Auto) 1.4 10^3/uL (0.8-4.8) 01/12/24 15:23 Mcintosh # (Auto) 0.5 10^3/uL (0.2-0.9) 01/12/24 15:23 Eos # (Auto) 0.6 10^3/uL (0.0-0.8) 01/12/24 15:23 Baso # (Auto) 0.0 10^3/uL (0.0-0.1) 01/12/24 15:23 Nucleated RBC % (auto) 0 % 05/17/24 15:23 Nucleated RBCs # 0.0 /100WBC 01/12/24 15:23 Sodium 136 mmol/L (136-145) 01/12/24 15:23 Potassium 3.6 mmol/L (3.5-5.1) 01/12/24 15:23 Chloride 99 mmol/L (98-107) 01/12/24 15:23 Carbon Dioxide 24 mmol/L (22-29) 01/12/24 15:23 Anion Gap 16.6 (5-19) 01/12/24 15:23 BUN 16 mg/dL (8-23) 01/12/24 15:23 Creatinine 0.8 mg/dL (0.7-1.2) 01/12/24 15:23 GFR Calculation 98.3 mL/min (90-130) 01/12/24 15:23 Glucose 88 mg/dL (65-115) 01/12/24 15:23 Calculated Osmolality 283 mOsm/kg (285-295) L 01/12/24 15:23 Calcium 8.9 mg/dL (8.5-10.5) 01/12/24 15:23 Iron 55 ug/dL (59-158) L 01/12/24 05:46 TIBC 318 mcg/dl 01/12/24 05:46 % Saturation 17.2 % (20-50) L 01/12/24 05:46 Unsat Iron Binding 263 ug/dL (112-347) 01/12/24 05:46 Total Bilirubin 0.5 mg/dL (0.15-1.2) 01/12/24 15:23 AST 45 U/L (0-40) H 01/12/24 15:23 ALT 53 U/L (0-41) H 01/12/24 15:23 Alkaline Phosphatase 88 U/L (40-130) 01/12/24 15:23 Total Protein 7.8 g/dL (6.6-8.7) 01/12/24 15:23 Albumin 4.1 g/dL (3.5-5.2) 01/12/24 15:23 Globulin 3.7 g/dL (1.3-4.6) 01/12/24 15:23 Vitamin B12 373 pg/mL (232-1245) 01/12/24 05:46 Procalcitonin 0.10 ng/mL (0-0.5) 01/12/24 05:46 TSH 1.92 uIU/mL (0.27-4.20) 01/12/24 05:46 Hepatitis A IgM Ab Non-reactive (Nonreactive) 01/12/24 05:46 Hep Bs Antigen Non-reactive (Nonreactive) 01/12/24 05:46 Hep Bs Antibody < 3.5 (11.5-1000) L 01/12/24 05:46 Hep B Core Total Ab Non-reactive (Nonreactive) 01/12/24 05:46 Hepatitis C Antibody Non-reactive (Nonreactive) 01/12/24 05:46 HIV 1&2 Ab & HIV 1 Ag Non-reactive (Non-Reactiv) 01/12/24 05:46 HIV 1&2 Antibody Non-reactive (Non-Reactiv) 01/12/24 05:46 No radiology studies performed this visit Discharge Plan Discharge Patient Disposition: Admitted As Inpatient Admit Provider: Paul Menjivar Clinical Impression: Disseminated zoster Condition: Stable Coding Level of Care Code ED Clinical Services Manager for Ara Das
[2024-01-12] MEDS: sodium chloride 0.9% 1,000 ML 999 ML IV (15:22)
[2024-01-12] MEDS: acyclovir 1,000 MG in sodium chloride 0.9% 250 ML 270 MG IV (15:22)
[2024-01-12 15:30] LABS: Basophils % 0.6 %; Eosinophils # 0.6 10^3/uL (0.0-0.8); Eosinophils % 10.8 %; Hematocrit 41.7 % (37-53); Lymphocytes # 1.4 10^3/uL (0.8-4.8); Lymphocytes % 26.4 %; Mean Corpuscular HGB Conc 33.1 g/dL (30-55); Mean Corpuscular Hemoglobin 27.9 pg (27-33); Mean Corpuscular Volume 84.2 fl (82-101); Mean Platelet Volume 9.4 fL (7.4-10.4); Monocytes # 0.5 10^3/uL (0.2-0.9); Monocytes % 10.6 %; Neutrophils # 2.63 10^3/uL (1.8-7.7); Neutrophils % 51.4 %; Nucleated Red Blood Cells % 0 %; Platelet Count 256 10^3/cmm (157-399); Red Blood Count 4.95 10^6/uL (3.85-5.65); Red Cell Distribution Width 13.7 % (12.1-15.1); White Blood Count 5.11 10^3/uL (3.29-11.43)
[2024-01-12 15:48] LABS: Albumin Level 4.1 g/dL (3.5-5.2); Alkaline Phosphatase 88 U/L (40-130); Anion Gap 16.6 (5-19); Blood Urea Nitrogen 16 mg/dL (8-23); Calcium 8.9 mg/dL (8.5-10.5); Carbon Dioxide 24 mmol/L (22-29); Chloride 99 mmol/L (98-107); Creatinine Clr Calc Pharmacy 123.8287; Globulin 3.7 g/dL (1.3-4.6); Glomerular Filtration Rate 98.3 mL/min (90-130); Potassium 3.6 mmol/L (3.5-5.1); Sodium 136 mmol/L (136-145); Total Bilirubin 0.5 mg/dL (0.15-1.2); Total Protein 7.8 g/dL (6.6-8.7)
[2024-01-12 15:59] LABS: Alanine Aminotransferase 53 U/L (0-41); Aspartate Amino Transferase 45 U/L (0-40)
[2024-01-12 16:00] LABS: Glucose 88 mg/dL (65-115); Osmolality Calculated 283 mOsm/kg (285-295)
--- NOTE | 2024-01-12 16:31 | PC.SOCIAL ---
Unable to get MICHELLE Cm called [facility]. They said they do not have the medicine in stock & will not be able to order until Monday. CM called the ER & updated Deonna of this.
[2024-01-12 17:01] VITALS: BP 125/77; PULSE 75; RESP 17; O2SAT 94
[2024-01-12 19:10] VITALS: BP 129/64; PULSE 61; RESP 18; TEMP 36.7; O2SAT 96
[2024-01-12] MEDS: sodium chloride 0.9% 1,000 ML 100 ML IV (20:04)
--- NOTE | 2024-01-12 21:21 | P.HP_ITS ---
Providers/Chief Complaint 2 Admitting Physician: Paul Menjivar Primary Care Provider: Nelson Dickens MD Chief Complaint: dr sent for fluids History of Present Illness Polo Dalton is a 63 year old male with history of diabetes, hypertension, DAVIE, started lesions on the left side of his body, chest, shoulder, back, left side neck/back of the head. Papular lesions, in various stages, some with erosions leaking clear fluid. Moderately painful. He initially thought it was a chemical burn at work. In various stages, spread across multiple dermatomes, was diagnosed with herpes zoster by his primary provider, referred to ER for initiation of IV acyclovir due to multiple dermatomal involvement. Arrangements were attempted for IV acyclovir as outpatient in ER but could not be completed. Review of Systems 2 Skin/Breast: Reports: rash and sores Medications/Allergies Home Medications Medication Instructions Recorded Confirmed Last Taken Type aspirin 325 mg tablet 325 mg PO DAILY 10/15/19 01/12/24 01/12/24 History lisinopril 20 1 tab PO DAILY 10/15/19 01/12/24 01/12/24 History mg-hydrochlorothiazide 12.5 mg tablet multivitamin (Daily Multi-Vitamin 1 tab PO DAILY 10/15/19 01/12/24 01/12/24 History tablet) simvastatin 20 mg tablet 20 mg PO QPM 10/15/19 01/12/24 01/11/24 History finasteride 5 mg tablet 5 mg PO DAILY 06/30/22 01/12/24 01/12/24 History metformin 500 mg tablet 1,000 mg PO DAILY 06/30/22 01/12/24 01/12/24 History cam boot #1 ea 07/06/22 01/12/24 Unknown Rx custom molded inserts #1 ea 12/07/22 01/12/24 Unknown Rx Allergies Allergy/AdvReac Type Severity Reaction Status Date / Time No Known Allergies Allergy Verified 12/07/22 14:25 PFSH Acute 2 PFSH: Medical History Urinary retention BPH loc w urin obs/LUTS Surgical History S/P knee surgery Family History Family/Other CAD (coronary artery disease) Hypertension Cancer Social History Smoking and tobacco/nicotine status: never used tobacco/nicotine Alcohol intake: current Alcohol intake frequency: few times a month Substance/Drug Use: never Marital status: Current occupational status: employed Vitals/I&O/Wt Last Vital Signs Temp 98.5 F 01/12/24 13:57 Pulse 75 01/12/24 17:01 Resp 17 01/12/24 17:01 BP 125/77 01/12/24 17:01 Pulse Ox 94 01/12/24 17:01 O2 Del Method Room Air 01/12/24 19:54 01/12/24 01/12/24 01/12/24 06:59 14:59 22:59 Intake Total 1270 / 1270 Balance 1270 / 1270 Weight last 48 hrs Weight 112.763 kg Physical Exam 2 Const: COMMON NORMALS: patient oriented x3 and alert GENERAL APPEARANCE: c ooperative ORIENTATION/CONSCIOUSNESS: Yes awake HENMT: COMMON NORMALS: oropharynx normal Neck/C-Spine: COMMON NORMALS: no JVD Resp: COMMON NORMALS: normal respiratory effort and clear to auscultation bilaterally AUSCULTATION: clear to auscultation bilaterally Cardio: COMMON NORMALS: no JVD, regular rhythm, S1 normal heart sound present, S2 normal heart sound present and No murmurs present (Cardio) RHYTHM: regular rhythm HEART SOUNDS: S1 normal heart sound present and S2 normal heart sound present GI: COMMON NORMALS: Normal to inspection, nondistended, normoactive bowel sounds present, Soft to palpation and non-tender PALPATION: Yes Soft to palpation Extremity: COMMON NORMALS: no joint enlargement and no pedal edema Neuro: COMMON NORMALS: patient oriented x3 and moves all extremities S ENSORIUM/ORIENTATION: Yes alert Skin: COMMON NORMALS: no rashes or lesions noted NARRATIVE SKIN EXAM: Multiple papular regions with surrounding rim of erythema on chest, back, neck, back of the head, some with erosion and draining clear fluid. GENERAL SKIN EXAM: no rashes or lesions noted Data 01/12/24 15:23 01/12/24 15:23 A&P Assessment and plan (1) Disseminated zoster: Reviewed vitals, CBC, CMP, ER note, discussed with ER provider. He is referred for hospitalization for IV acyclovir after diagnosed with herpes zoster by primary provider with multi dermatomal distribution on the left side classifying as disseminated. Discussed airborne precautions with him and his . He has started acyclovir in ER, continue every 8 hours. Reassess kidney function with risk of kidney injury. Noted mild transaminitis, reassess liver parameters. He is not immunocompromise. Has never had zoster before. Will request PCR from the lesion, serology. Viral culture. Fluorescein stain done in ER negative for corneal involvement. Continue IV acyclovir at current time target 5-10 days, cover lesions until dry and crusted, however, reassess lesions, in case lack of improvement, or lesions progressively increasing in size consider other possible diagnosis, consider biopsy, including for pyoderma gangrenosum. Plan Mild transaminitis: Noted minimal AST and ALT elevation. Follow-up liver parameters. Hold statin for now. DAVIE: Continue CPAP. Diabetes: CC diet, mild sliding scale insulin. Monitor Accu-Cheks. Hypertension: Continue lisinopril-HCTZ. Attestations 2 Medical Necessity Statement*: Admission over 2 midnights anticipated for assessment management of disseminated herpes zoster. Diagnoses Disseminated zoster B02.7
[2024-01-12 21:23] VITALS: RESP 18
[2024-01-12] MEDS: morphine 4 mg/mL SDV 1 mL 2 MG IVP (21:23)
[2024-01-12 22:42] VITALS: PULSE 73
[2024-01-13] VITALS (11 sets, daily range): BP systolic 123–165; BP diastolic 75–87; PULSE 16–66; RESP 17–18; TEMP 36.3–36.7; O2SAT 95–99
[2024-01-13] MEDS: acyclovir 1,000 MG in sodium chloride 0.9% 250 ML 270 MG IV ×2 (03:24→10:46)
[2024-01-13] MEDS: morphine 4 mg/mL SDV 1 mL 2 MG IVP ×2 (03:26→22:32)
[2024-01-13] MEDS: sodium chloride 0.9% 1,000 ML 100 ML IV (05:52)
[2024-01-13 06:39] LABS: Basophils % 0.9 %; Eosinophils # 0.6 10^3/uL (0.0-0.8); Eosinophils % 13.7 %; Hematocrit 40.7 % (37-53); Lymphocytes # 1.2 10^3/uL (0.8-4.8); Lymphocytes % 24.6 %; Mean Corpuscular HGB Conc 32.2 g/dL (30-55); Mean Corpuscular Hemoglobin 27.9 pg (27-33); Mean Corpuscular Volume 86.6 fl (82-101); Mean Platelet Volume 9.7 fL (7.4-10.4); Monocytes # 0.4 10^3/uL (0.2-0.9); Monocytes % 9.2 %; Neutrophils # 2.37 10^3/uL (1.8-7.7); Neutrophils % 50.7 %; Nucleated Red Blood Cells % 0 %; Platelet Count 225 10^3/cmm (157-399); Red Cell Distribution Width 13.8 % (12.1-15.1); White Blood Count 4.67 10^3/uL (3.29-11.43)
[2024-01-13 07:04] LABS: Alanine Aminotransferase 45 U/L (0-41); Albumin Level 3.7 g/dL (3.5-5.2); Alkaline Phosphatase 83 U/L (40-130); Anion Gap 12.6 (5-19); Aspartate Amino Transferase 39 U/L (0-40); Blood Urea Nitrogen 13 mg/dL (8-23); Calcium 7.6 mg/dL (8.5-10.5); Carbon Dioxide 24 mmol/L (22-29); Chloride 106 mmol/L (98-107); Cholesterol 134 mg/dL (0-200); Creatinine Clr Calc Pharmacy 124.1924; Estmated Average Glucose 134; Globulin 2.5 g/dL (1.3-4.6); Glomerular Filtration Rate 98.3 mL/min (90-130); Glucose 128 mg/dL (65-115); HDL Cholesterol 20 mg/dL (60-100); Hemoglobin A1C 6.3 % (4.0-6.0); LDL Cholesterol Calculated 89 mg/dL (50-129); Magnesium 2.2 mg/dL (1.7-2.3); Osmolality Calculated 290 mOsm/kg (285-295); Potassium 3.6 mmol/L (3.5-5.1); Sodium 139 mmol/L (136-145); Total Bilirubin 0.3 mg/dL (0.15-1.2); Total Protein 6.2 g/dL (6.6-8.7); Triglycerides 125 mg/dL (0-150); VLDL Cholestrol Calculation 25 mg/dL (0-30)
[2024-01-13 07:17] LABS: Thyroid Stimulating Hormone 1.92 uIU/mL (0.27-4.20); Vitamin B12 373 pg/mL (232-1245)
[2024-01-13 07:18] LABS: Hepatitis A Antibody IgM Non-Reactive (Nonreactive); Hepatitis B Core AB, Total Non-Reactive (Nonreactive); Hepatitis B Surface AB < 3.5 (11.5-1000); Hepatitis B Surface Antigen Non-Reactive (Nonreactive); Hepatitis C Virus Antibody Non-Reactive (Nonreactive)
[2024-01-13 07:28] LABS: Iron 55 ug/dL (59-158); Percent Saturation 17.2 % (20-50); Total Iron Binding Capacity 318 mcg/dl; Unsaturated Iron Binding 263 ug/dL (112-347)
[2024-01-13 07:31] LABS: HIV 1 & 2 Antibody Non-Reactive (Non-Reactiv); HIV 1 & 2 Antigen Non-Reactive (Non-Reactiv)
[2024-01-13 07:46] LABS: Folate Level > 20.0 ng/mL (4.5-32.2)
[2024-01-13] MEDS: lisinopril 20 mg Tablet PO (08:57)
[2024-01-13] MEDS: hydroCHLOROthiazide 25 mg Tablet 12.5 MG PO (08:57)
[2024-01-13] MEDS: finasteride 5 mg Tablet PO (08:57)
[2024-01-13] MEDS: aspirin 325 mg Tablet PO (08:57)
[2024-01-13] MEDS: multivitamin therapeutic Tablet 1 TAB PO (08:57)
--- NOTE | 2024-01-13 10:23 | P.PN_ITS ---
Subjective 2 Subjective: Hospital course, labs appreciated. Examination patient sitting comfortably in bed. Denies any nausea vomiting, headache. States the rash started 5 days ago and has been spreading. Pain for now if tolerable. Vitals/I&O/Wt Last Vital Signs Temp 97.6 F 01/13/24 08:14 Pulse 63 01/13/24 08:14 Resp 18 01/13/24 08:14 BP 127/80 01/13/24 08:14 Pulse Ox 96 01/13/24 08:14 O2 Del Method Room Air 01/13/24 08:14 01/12/24 01/13/24 01/13/24 22:59 06:59 14:59 Intake Total 1270 / 1270 1250 / 2520 480 / 480 Output Total 500 / 500 Balance 1270 / 1270 750 / 2020 480 / 480 Weight last 48 hrs Weight 113.426 kg Weight 112.763 kg Physical Exam 2 Const: COMMON NORMALS: patient oriented x3 and alert GENERAL APPEARANCE: c ooperative ORIENTATION/CONSCIOUSNESS: Yes awake HENMT: COMMON NORMALS: oropharynx normal Neck/C-Spine: COMMON NORMALS: no JVD Resp: COMMON NORMALS: normal respiratory effort and clear to auscultation bilaterally AUSCULTATION: clear to auscultation bilaterally Cardio: COMMON NORMALS: no JVD, regular rhythm, S1 normal heart sound present, S2 normal heart sound present and No murmurs present (Cardio) RHYTHM: regular rhythm HEART SOUNDS: S1 normal heart sound present and S2 normal heart sound present GI: COMMON NORMALS: Normal to inspection, nondistended, normoactive bowel sounds present, Soft to palpation and non-tender PALPATION: Yes Soft to palpation Extremity: COMMON NORMALS: no joint enlargement and no pedal edema Neuro: COMMON NORMALS: patient oriented x3 and moves all extremities S ENSORIUM/ORIENTATION: Yes alert Skin: COMMON NORMALS: no rashes or lesions noted NARRATIVE SKIN EXAM: Multiple papular regions with surrounding rim of erythema on chest, back, neck, back of the head, some with erosion and draining clear fluid. GENERAL SKIN EXAM: no rashes or lesions noted OTHER: Data 01/13/24 05:46 01/13/24 05:46 Micro: Microbiology 01/12/24 05:46 Blood Culture - Preliminary Blood SPECIMEN COLLECTED 01/12/24 05:46 Blood Culture - Preliminary Blood SPECIMEN COLLECTED A&P Assessment and plan (1) Disseminated zoster: Concerns for disseminated zoster with multiple dermatome distribution. Airborne precautions. Viral culture awaited. HIV, hepatitis panel negative. Denies any chemotherapy or biologicals recently. Patient is a diabetic which puts him mildly immunocompromise but seems to be well-controlled with A1c of 6.3. Fluorescein stain done in ER negative for corneal involvement. IV acyclovir 10 mg/kg body weight Q8 hourly. Will plan to continue IV acyclovir till he stops developing new lesions on all the present lesions are crusted over. Will plan to continue will reassess lesions daily. Cover lesions until dry and crusted, however, reassess lesions, in case lack of improvement, or lesions progressively increasing in size consider other possible diagnosis, consider biopsy, including for pyoderma gangrenosum. As patient is on acyclovir will continue to maintain hydration. Monitor renal functions daily. Plan Mild transaminitis: Noted minimal AST and ALT elevation. Follow-up liver parameters. Hold statin for now. DAVIE: Continue CPAP. Diabetes: CC diet, mild sliding scale insulin. Monitor Accu-Cheks. Hypertension: Goal blood pressure less than 140/90 mmHg with mean over 65. As patient is on acyclovir for now we will hold off on hydrochlorothiazide. Hydration as above. Full code Carb consistent diet Famotidine for PUD prophylaxis Low risk of VTE. Patient is ambulatory. Attestations 2 Medical Necessity Statement*: Requires further hospitalization for management of disseminated zoster as he requires IV antiviral and hydration on airborne precautions Diagnoses Disseminated zoster B02.7
[2024-01-13] MEDS: lidocaine 4% cream 5 gm 1 APPLIC TOPICAL (10:46)
[2024-01-13 11:41] LABS: Glucose Point of Care 115 mg/dL (70-110)
[2024-01-13 16:49] LABS: Glucose Point of Care 114 mg/dL (70-110)
[2024-01-13] MEDS: atorvastatin 40 mg Tablet PO (17:11)
[2024-01-13] MEDS: sodium chloride 0.9% 1,000 ML 75 ML IV (19:13)
[2024-01-13 21:02] LABS: Glucose Point of Care 103 mg/dL (70-110)
[2024-01-14] VITALS (11 sets, daily range): BP systolic 126–144; BP diastolic 72–84; PULSE 56–78; RESP 16–18; TEMP 36.4–36.7; O2SAT 93–99
[2024-01-14] MEDS: morphine 4 mg/mL SDV 1 mL 2 MG IVP ×3 (04:44→19:20)
[2024-01-14 05:50] LABS: Basophils % 0.5 %; Eosinophils # 0.7 10^3/uL (0.0-0.8); Eosinophils % 12.8 %; Hematocrit 40.8 % (37-53); Lymphocytes # 1.3 10^3/uL (0.8-4.8); Lymphocytes % 24.3 %; Mean Corpuscular HGB Conc 32.4 g/dL (30-55); Mean Corpuscular Hemoglobin 27.8 pg (27-33); Mean Corpuscular Volume 85.9 fl (82-101); Mean Platelet Volume 9.8 fL (7.4-10.4); Monocytes # 0.5 10^3/uL (0.2-0.9); Monocytes % 8.4 %; Neutrophils # 2.94 10^3/uL (1.8-7.7); Neutrophils % 53.6 %; Nucleated Red Blood Cells % 0 %; Platelet Count 244 10^3/cmm (157-399); Red Blood Count 4.75 10^6/uL (3.85-5.65); Red Cell Distribution Width 13.8 % (12.1-15.1); White Blood Count 5.48 10^3/uL (3.29-11.43)
[2024-01-14 06:09] LABS: Alanine Aminotransferase 40 U/L (0-41); Albumin Level 3.7 g/dL (3.5-5.2); Alkaline Phosphatase 80 U/L (40-130); Aspartate Amino Transferase 30 U/L (0-40); Blood Urea Nitrogen 9 mg/dL (8-23); Calcium 7.8 mg/dL (8.5-10.5); Carbon Dioxide 26 mmol/L (22-29); Chloride 112 mmol/L (98-107); Creatinine Clr Calc Pharmacy 141.9166; Globulin 2.8 g/dL (1.3-4.6); Glomerular Filtration Rate 114.6 mL/min (90-130); Glucose 120 mg/dL (65-115); Osmolality Calculated 302 mOsm/kg (285-295); Sodium 146 mmol/L (136-145); Total Bilirubin 0.2 mg/dL (0.15-1.2); Total Protein 6.5 g/dL (6.6-8.7)
[2024-01-14 06:11] LABS: Magnesium 2.1 mg/dL (1.7-2.3)
[2024-01-14 06:33] LABS: Glucose Point of Care 128 mg/dL (70-110)
[2024-01-14] MEDS: aspirin 325 mg Tablet PO (08:51)
[2024-01-14] MEDS: lisinopril 20 mg Tablet PO (08:51)
[2024-01-14] MEDS: multivitamin therapeutic Tablet 1 TAB PO (08:51)
[2024-01-14] MEDS: finasteride 5 mg Tablet PO (08:51)
[2024-01-14] MEDS: sodium chloride 0.9% 1,000 ML 75 ML IV (08:53)
[2024-01-14] MEDS: dextrose 5%-sod chloride 0.45% 1,000 ML 50 ML IV (09:42)
[2024-01-14] MEDS: lidocaine 5% Patch 1 PATCH TOPICAL ×2 (09:42→21:05)
[2024-01-14 11:29] LABS: Glucose Point of Care 118 mg/dL (70-110)
--- NOTE | 2024-01-14 11:35 | P.PN_ITS ---
Subjective 2 Subjective: No acute events overnight. Patient denies any nausea vomiting, headache. States he is feeling the same. Complaining of itching around the lesions. Vitals/I&O/Wt Last Vital Signs Temp 97.6 F 01/14/24 07:47 Pulse 60 01/14/24 07:47 Resp 18 01/14/24 09:48 BP 137/81 01/14/24 07:47 Pulse Ox 99 01/14/24 07:47 O2 Del Method Room Air 01/14/24 07:47 01/13/24 01/14/24 01/14/24 22:59 06:59 14:59 Intake Total 1520.333 / 3422.000 512 / 3934.000 1698.75 / 1698.75 Output Total 800 / 800 500 / 1300 Balance 720.333 / 2622.000 12 / 2634.000 1698.75 / 1698.75 Weight last 48 hrs Weight 113.398 kg Weight 113.426 kg Weight 112.763 kg Physical Exam 2 Const: COMMON NORMALS: patient oriented x3 and alert GENERAL APPEARANCE: c ooperative ORIENTATION/CONSCIOUSNESS: Yes awake HENMT: COMMON NORMALS: oropharynx normal Neck/C-Spine: COMMON NORMALS: no JVD Resp: COMMON NORMALS: normal respiratory effort and clear to auscultation bilaterally AUSCULTATION: clear to auscultation bilaterally Cardio: COMMON NORMALS: no JVD, regular rhythm, S1 normal heart sound present, S2 normal heart sound present and No murmurs present (Cardio) RHYTHM: regular rhythm HEART SOUNDS: S1 normal heart sound present and S2 normal heart sound present GI: COMMON NORMALS: Normal to inspection, nondistended, normoactive bowel sounds present, Soft to palpation and non-tender PALPATION: Yes Soft to palpation Extremity: COMMON NORMALS: no joint enlargement and no pedal edema Neuro: COMMON NORMALS: patient oriented x3 and moves all extremities S ENSORIUM/ORIENTATION: Yes alert Skin: COMMON NORMALS: no rashes or lesions noted NARRATIVE SKIN EXAM: Multiple papular regions with surrounding rim of erythema on chest, back, neck, back of the head, some with erosion and draining clear fluid. GENERAL SKIN EXAM: no rashes or lesions noted OTHER: Data 01/14/24 05:12 01/14/24 05:12 Micro: Microbiology 05/17/24 05:46 Blood Culture - Preliminary Blood NEGATIVE TO DATE 01/12/24 05:46 Blood Culture - Preliminary Blood NEGATIVE TO DATE A&P Assessment and plan (1) Disseminated zoster: Concerns for disseminated zoster with multiple dermatome distribution. Airborne precautions. Viral culture awaited. HIV, hepatitis panel negative. Denies any chemotherapy or biologicals recently. Patient is a diabetic which puts him mildly immunocompromise but seems to be well-controlled with A1c of 6.3. Fluorescein stain done in ER negative for corneal involvement. IV acyclovir 10 mg/kg body weight Q8 hourly. Will plan to continue IV acyclovir till he stops developing new lesions on all the present lesions are crusted over. Will plan to continue will reassess lesions daily. Cover lesions until dry and crusted, however, reassess lesions, in case lack of improvement, or lesions progressively increasing in size consider other possible diagnosis, consider biopsy, including for pyoderma gangrenosum. As patient is on acyclovir will continue to maintain hydration. Monitor renal functions daily. (2) Type 2 diabetes mellitus: A1c 6.3. Insulin sliding scale for now. Carb consistent diet. (3) Hypernatremia: Plan Mild transaminitis: Noted minimal AST and ALT elevation. Follow-up liver parameters. Hold statin for now. DAVIE: Continue CPAP. Diabetes: CC diet, mild sliding scale insulin. Monitor Accu-Cheks. Hypertension: Goal blood pressure less than 140/90 mmHg with mean over 65. As patient is on acyclovir for now we will hold off on hydrochlorothiazide. Hydration as above. Plan for the day: Continue to monitor the lesions. Continue with IV acyclovir. Patient developing mild hypernatremia. Switch fluid from normal saline to D5 half at 75 cc/h. Repeat BMP in evening. Continue with lidocaine ointment. Plan for lidocaine patch. Calamine lotion for itching. Goal blood pressure less than 140/90 mmHg. Continue with home dose of lisinopril. Full code Carb consistent diet Famotidine for PUD prophylaxis Low risk of VTE. Patient is ambulatory. Attestations 2 Medical Necessity Statement*: Requires further hospitalization for management of disseminated herpes zoster, mild hypernatremia Diagnoses Disseminated zoster B02.7 Type 2 diabetes mellitus E11.9 Hypernatremia E87.0
[2024-01-14 16:15] LABS: Blood Urea Nitrogen 9 mg/dL (8-23); Calcium 8.7 mg/dL (8.5-10.5); Carbon Dioxide 26 mmol/L (22-29); Chloride 105 mmol/L (98-107); Creatinine Clr Calc Pharmacy 141.9166; Glomerular Filtration Rate 114.6 mL/min (90-130); Glucose 107 mg/dL (65-115); Osmolality Calculated 289 mOsm/kg (285-295); Sodium 140 mmol/L (136-145)
[2024-01-14 16:37] LABS: Glucose Point of Care 131 mg/dL (70-110)
[2024-01-14] MEDS: atorvastatin 40 mg Tablet PO (16:56)
[2024-01-14 20:51] LABS: Glucose Point of Care 87 mg/dL (70-110)
[2024-01-15 04:42] VITALS: BP 158/89; PULSE 71; RESP 16; O2SAT 98
[2024-01-15 06:39] LABS: Glucose Point of Care 149 mg/dL (70-110)
[2024-01-15 06:59] LABS: Basophils % 0.6 %; Eosinophils # 0.6 10^3/uL (0.0-0.8); Eosinophils % 12.3 %; Hematocrit 40.2 % (37-53); Lymphocytes # 1.3 10^3/uL (0.8-4.8); Lymphocytes % 25.8 %; Mean Corpuscular HGB Conc 32.6 g/dL (30-55); Mean Corpuscular Hemoglobin 27.8 pg (27-33); Mean Corpuscular Volume 85.4 fl (82-101); Mean Platelet Volume 9.3 fL (7.4-10.4); Monocytes # 0.4 10^3/uL (0.2-0.9); Monocytes % 8.2 %; Neutrophils # 2.66 10^3/uL (1.8-7.7); Neutrophils % 52.9 %; Nucleated Red Blood Cells % 0 %; Platelet Count 211 10^3/cmm (157-399); Red Blood Count 4.71 10^6/uL (3.85-5.65); Red Cell Distribution Width 13.7 % (12.1-15.1); White Blood Count 5.03 10^3/uL (3.29-11.43)
[2024-01-15 07:16] LABS: Alanine Aminotransferase 44 U/L (0-41); Albumin Level 3.4 g/dL (3.5-5.2); Alkaline Phosphatase 77 U/L (40-130); Anion Gap 12.3 (5-19); Aspartate Amino Transferase 32 U/L (0-40); Blood Urea Nitrogen 9 mg/dL (8-23); Calcium 8.5 mg/dL (8.5-10.5); Carbon Dioxide 25 mmol/L (22-29); Chloride 108 mmol/L (98-107); Creatinine Clr Calc Pharmacy 141.3479; Glomerular Filtration Rate 114.6 mL/min (90-130); Glucose 143 mg/dL (65-115); Osmolality Calculated 293 mOsm/kg (285-295); Potassium 4.3 mmol/L (3.5-5.1); Sodium 141 mmol/L (136-145); Total Bilirubin 0.3 mg/dL (0.15-1.2); Total Protein 6.4 g/dL (6.6-8.7)
[2024-01-15 07:17] LABS: Magnesium 2.1 mg/dL (1.7-2.3)
[2024-01-15] MEDS: dextrose 5%-sod chloride 0.45% 1,000 ML 50 ML IV (08:06)
[2024-01-15 08:24] VITALS: BP 147/90; PULSE 65; RESP 18; TEMP 36.8; O2SAT 95
[2024-01-15] MEDS: multivitamin therapeutic Tablet 1 TAB PO (09:35)
[2024-01-15] MEDS: finasteride 5 mg Tablet PO (09:35)
[2024-01-15] MEDS: lidocaine 5% Patch 1 PATCH TOPICAL (09:35)
[2024-01-15] MEDS: lisinopril 20 mg Tablet PO (09:35)
[2024-01-15] MEDS: aspirin 325 mg Tablet PO (09:35)
[2024-01-15 11:47] LABS: Glucose Point of Care 98 mg/dL (70-110)
--- NOTE | 2024-01-15 12:13 | PM.DCS ---
Discharge Providers Date of Admission: 01/12/24 17:14 Date of Discharge: January 15, 2024 Attending Provider at Admission: Paul Menjivar Attending Provider at Discharge: Amanda Arvizu MD Primary Care Provider: Nelson Dickens MD Diagnoses at Discharge Discharge Diagnosis (1) Disseminated zoster: Status: Acute (2) Type 2 diabetes mellitus: Status: Acute (3) Hypernatremia: Status: Acute Reason for Visit Reason for Visit: dr cook for fluids Brief History: Patient is a 63-year-old male with a history of diabetes mellitus, hypertension, who was admitted to the hospital on January 12, 2024 with skin lesions involving the left side of his neck, back, occipital area, anterior chest wall. Lesions were consistent with herpes zoster. He was referred to the ER by his primary care physician due to concern for disseminated zoster and need for IV treatment. Patient was treated with IV acyclovir 10 mg/kg every 8 hours. Kidney function was closely monitored, he tolerated the same. Most of his lesions have started to crust over at this point in time. There are noted to be some papules over the anterior chest wall and at the nape of his neck, however over 80% lesions are currently scabbed over. He has remained afebrile, hemodynamically stable, eager to return home today. Patient does not immunocompromise except for a history of diabetes mellitus. Last HbA1c from January 13, 2024 is at 6.3, consistent with well-controlled diabetes mellitus. He is being transitioned to oral Valtrex 1 g 3 times a day to continue treatment over the next 10 days. Discussed with him to return to the emergency room should he see any signs of worsening of his rash. Discussed with him possibility of postherpetic neuralgia. Currently denies any significant pain. Encouraged to get Shingrix vaccination in a few months once recovered from the current episode. Counseled regarding need to maintain isolation precautions at home. Patient lives at home with his who is reportedly vaccinated with 1st dose Shingrix. Work release provided for the next 10 days. Follow-up with primary care physician in the next 7 to 10 days to ensure that the rash continues to improve, no signs of overlying secondary bacterial infection and check on kidney function. Physical Exam Narrative: General: No acute distress, AO x3 HEENT: PERRLA, pupils bilaterally equal and reactive, pallors not present Chest: Normal vesicular breath sounds, no added sounds, equal good air entry bilaterally CVS: S1-S2 regular, no murmurs, no tachycardia, no gallops, no rubs Abdomen: Soft, nontender, no organomegaly, bowel sounds present Neuro: No focal deficits, no facial deformity, AO x3, power 5/5 in all limbs Extremities: Rash consistent with herpes zoster affecting posterior occipital area, left side of neck, left jaw, left anterior chest wall above the nipple, left scapular area. Majority of lesions are crusted over. Few papular lesions are seen over the anterior chest wall and nape of the neck, however majority lesions are healed over at this point in time. Discharge Data Studies Completed and Pending Pending at discharge Category Date Time Status Blood Culture Stat Lab 01/12/24 05:46 Results Drug Screen, Urine Stat Lab 01/12/24 22:18 Ordered Miscellaneous Test Routine Lab 01/12/24 22:28 Received Sputum Culture and Gram Stain Routine Lab 01/12/24 21:53 Uncollected Urinalysis Routine Lab 01/12/24 22:17 Ordered Varicella Zoster IGG&IGM Routine Lab 01/12/24 05:46 Received Viral Culture Body Flds,Tissue Routine Lab 01/12/24 22:29 Received Laboratory Results WBC 5.03 10^3/uL (3.29-11.43) 01/15/24 06:30 RBC 4.71 10^6/uL (3.85-5.65) 01/15/24 06:30 Hgb 13.10 g/dL (11.27-16.99) 01/15/24 06:30 Hct 40.2 % (37-53) 01/15/24 06:30 MCV 85.4 fl (82-101) 01/15/24 06:30 MCH 27.8 pg (27-33) 01/15/24 06:30 MCHC 32.6 g/dL (30-55) 01/15/24 06:30 RDW 13.7 % (12.1-15.1) 01/15/24 06:30 Plt Count 211 10^3/cmm (157-399) 01/15/24 06:30 MPV 9.3 fL (7.4-10.4) 01/15/24 06:30 Neut % (Auto) 52.9 % 01/15/24 06:30 Lymph % (Auto) 25.8 % 01/15/24 06:30 Colbert % (Auto) 8.2 % 01/15/24 06:30 Eos % (Auto) 12.3 % 01/15/24 06:30 Baso % (Auto) 0.6 % 01/15/24 06:30 Neut # (Auto) 2.66 10^3/uL (1.8-7.7) 01/15/24 06:30 Lymph # (Auto) 1.3 10^3/uL (0.8-4.8) 01/15/24 06:30 Colbert # (Auto) 0.4 10^3/uL (0.2-0.9) 01/15/24 06:30 Eos # (Auto) 0.6 10^3/uL (0.0-0.8) 01/15/24 06:30 Baso # (Auto) 0.0 10^3/uL (0.0-0.1) 01/15/24 06:30 Nucleated RBC % (auto) 0 % 01/15/24 06:30 Nucleated RBCs # 0.0 /100WBC 01/15/24 06:30 Sodium 141 mmol/L (136-145) 01/15/24 06:30 Potassium 4.3 mmol/L (3.5-5.1) 01/15/24 06:30 Chloride 108 mmol/L (98-107) H 01/15/24 06:30 Carbon Dioxide 25 mmol/L (22-29) 01/15/24 06:30 Anion Gap 12.3 (5-19) 01/15/24 06:30 BUN 9 mg/dL (8-23) 01/15/24 06:30 Creatinine 0.7 mg/dL (0.7-1.2) 01/15/24 06:30 GFR Calculation 114.6 mL/min (90-130) 01/15/24 06:30 Glucose 143 mg/dL (65-115) H 01/15/24 06:30 POC Glucose 98 mg/dL (70-110) 01/15/24 11:42 Estimat Average Glucose 134 01/13/24 05:46 Hemoglobin A1c 6.3 % (4.0-6.0) H 01/13/24 05:46 Calculated Osmolality 293 mOsm/kg (285-295) 01/15/24 06:30 Calcium 8.5 mg/dL (8.5-10.5) 01/15/24 06:30 Magnesium 2.1 mg/dL (1.7-2.3) 01/15/24 06:30 Iron 55 ug/dL (59-158) L 01/12/24 05:46 TIBC 318 mcg/dl 01/12/24 05:46 % Saturation 17.2 % (20-50) L 01/12/24 05:46 Unsat Iron Binding 263 ug/dL (112-347) 01/12/24 05:46 Total Bilirubin 0.3 mg/dL (0.15-1.2) 01/15/24 06:30 AST 32 U/L (0-40) 01/15/24 06:30 ALT 44 U/L (0-41) H 01/15/24 06:30 Alkaline Phosphatase 77 U/L (40-130) 01/15/24 06:30 Total Protein 6.4 g/dL (6.6-8.7) L 01/15/24 06:30 Albumin 3.4 g/dL (3.5-5.2) L 01/15/24 06:30 Globulin 3.0 g/dL (1.3-4.6) 01/15/24 06:30 Triglycerides 125 mg/dL (0-150) 01/13/24 05:46 Cholesterol 134 mg/dL (0-200) 01/13/24 05:46 LDL Cholesterol, Calc 89 mg/dL (50-129) 01/13/24 05:46 Total VLDL Cholesterol 25 mg/dL (0-30) 01/13/24 05:46 HDL Cholesterol 20 mg/dL (60-100) L 01/13/24 05:46 Cholesterol/HDL Ratio 6.70 mg/dL (1.0-5.00) H 01/13/24 05:46 Vitamin B12 373 pg/mL (232-1245) 01/12/24 05:46 Folate > 20.0 ng/mL (4.5-32.2) 01/13/24 05:46 Procalcitonin 0.10 ng/mL (0-0.5) 01/12/24 05:46 TSH 1.92 uIU/mL (0.27-4.20) 01/12/24 05:46 Hepatitis A IgM Ab Non-reactive (Nonreactive) 01/12/24 05:46 Hep Bs Antigen Non-reactive (Nonreactive) 01/12/24 05:46 Hep Bs Antibody < 3.5 (11.5-1000) L 01/12/24 05:46 Hep B Core Total Ab Non-reactive (Nonreactive) 01/12/24 05:46 Hepatitis C Antibody Non-reactive (Nonreactive) 01/12/24 05:46 HIV 1&2 Ab & HIV 1 Ag Non-reactive (Non-Reactiv) 01/12/24 05:46 HIV 1&2 Antibody Non-reactive (Non-Reactiv) 01/12/24 05:46 Vitals Last Vital Signs Temp 98.3 F 01/15/24 08:24 Pulse 65 01/15/24 08:24 Resp 18 01/15/24 08:24 BP 147/90 01/15/24 08:24 Pulse Ox 95 01/15/24 08:24 O2 Del Method Room Air 01/15/24 08:24 Discharge Plan Discharge Patient Disposition: Home Condition: Stable Prescriptions: New Valtrex 1 gram tablet 1,000 mg PO Q8H 10 Days Qty: 30 0RF mupirocin 2 % ointment 1 applic topical DAILY PRN (Reason: cellulitis) Qty: 15 0RF Continued simvastatin 20 mg tablet 20 mg PO QPM lisinopril-hydrochlorothiazide 20-12.5 mg tablet 1 tab PO DAILY aspirin 325 mg tablet 325 mg PO DAILY multivitamin [Daily Multi-Vitamin] Tablet 1 tab PO DAILY (DME) cam boot See Rx Instructions .Route .MEDSUPPLY Qty: 1 0RF Rx Instructions: As directed (DME) custom molded inserts See Rx Instructions .Route .MEDSUPPLY Qty: 1 0RF Rx Instructions: [id number] soft/PLACIDO top cover with 2nd metatarsal cut out bilaterally finasteride 5 mg tablet 5 mg PO DAILY metformin 500 mg Tablet 1,000 mg PO DAILY Discharge Orders: Discharge Order (Routine); Ordered 01/15/24 Ordered By: Amanda Arvizu Referrals: Nelson Dickens MD [Primary Care Provider] - 01/23/24 9:45 am Patient Instructions: Acyclovir (By mouth), Shingles (ED), Opioid Safety Activity Restrictions/Additional Instructions: # call your doctor or ER ?Your pain gets worse and is not helped by pdvo-afu-lgoleol medicines. ?You have increased redness or swelling around your rash. ?You get a fever. ?You have eye symptoms like redness, irritation, or vision problems. ?You have ear symptoms like pain or trouble hearing. # ?You can: ?Take all of your medicines as instructed. ?Keep your rash clean and dry. Do not use creams or gels unless your doctor or nurse says that you should. ?Try not to scratch your skin. ?Wear loose clothing if this makes you more comfortable. you can prevent spreading the virus to other people if you: ?Keep your rash covered. ?Wash your hands often until your rash has scabbed over. Discharge Attestations Time Spent in Discharge Care*: greater than 30 min Quality Metrics Clinical Quality Measures [ No reported AMI, CVA or VTE this stay] Coding Level of Care Code Acute Code for Chg Fwd Diagnoses Disseminated zoster B02.7 Type 2 diabetes mellitus E11.9 Hypernatremia E87.0
[2024-01-15 12:22] VITALS: BP 164/89; PULSE 69; RESP 18; TEMP 36.6; O2SAT 97
--- NOTE | 2024-01-15 13:13 | PC.SOCIAL ---
Patient needed a work note. CM faxed one to [phone] [employer] his [address] of work.
== END 2024-01-15 12:20 | disposition home or self-care (01) | DRG 866 ==
LOC: ER 15:22 → MEDSURG 18:33
PROVIDERS: Emergency Medicine; Student in an Organized Health Care Education/Training Program; Admitting Provider Internal Medicine; Emergency Provider Family Medicine; PCP Family Medicine; Visit Provider Student in an Organized Health Care Education/Training Program
DX: B02.7 Disseminated zoster (principal); E87.0 Hyperosmolality and hypernatremia; E11.9 Type 2 diabetes mellitus without complications; Z79.84 Long term (current) use of oral hypoglycemic drugs; I10 Essential (primary) hypertension; N40.1 Benign prostatic hyperplasia with lower urinary tract symptoms; R33.8 Other retention of urine; G47.33 Obstructive sleep apnea (adult) (pediatric); R74.01 Elevation of levels of liver transaminase levels
CPT/HCPCS: 36415; 36416; 80048; 80053; 80061; 82607; 82746; 82962; 83036; 83540; 83550; 83735; 84145; 84443; 85025; 86705; 86706; 86709; 86787; 86803; 87040; 87252; 87340; 87806; 96365; 99285; J0133; J2270; J7030; J7050; J7799

== ENCOUNTER 2024-08-29 11:35 | Outpatient (CLI) | payer OTHER, SELFPAY ==
--- NOTE | 2024-08-29 11:47 | XR_ITS ---
WS: [id number] LEFT KNEE: 3 VIEW(S) TECHNIQUE: AP, oblique(s) and lateral. HISTORY: PAIN OF LEFT KNEE JOINT COMPARISON: None available. No fracture or dislocation. Moderate to severe narrowing of the patellofemoral and medial joint spaces. Mild narrowing of the lat eral compartment. Small marginal osteophytes at each joint space. No fracture. No joint effusion. No joint effusion. No soft tissue abnormality. 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 No fracture.
== END 2024-08-29 11:36 | disposition home or self-care (01) ==
LOC: RADOUTREAD 11:39
PROVIDERS: PCP Family Medicine; Visit Provider Family Medicine
DX: M17.12 Unilateral primary osteoarthritis, left knee (principal); M25.762 Osteophyte, left knee
CPT/HCPCS: 73562

== ENCOUNTER → 2025-04-02 10:15 | Outpatient (BNVA) | payer OTHER, SELFPAY | PROVIDERS: PCP Family Medicine; Visit Provider Family Medicine | DX: I10 Essential (primary) hypertension (principal); E55.9 Vitamin D deficiency, unspecified; E78.2 Mixed hyperlipidemia; E11.9 Type 2 diabetes mellitus without complications; N40.1 Benign prostatic hyperplasia with lower urinary tract symptoms; Z12.5 Encounter for screening for malignant neoplasm of prostate; R79.89 Other specified abnormal findings of blood chemistry | CPT/HCPCS: 80053; 80061; 82043; 82306; 82607; 83036; 84443; 85025; G0103 ==

== ENCOUNTER 2025-05-20 17:10 | Emergency (ER) | payer OTHER, SELFPAY ==
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
[2025-05-20 17:12] VITALS: BP 186/96; PULSE 86; RESP 16; TEMP 36.8; O2SAT 96; BMI 36.2
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
--- OUTSIDE RECORDS SUMMARY | 2025-05-20 17:17 | XMS_ITS | Clinical Summary ---
Author Organization [facility] Address [address] [place] [id number] Care Team Providers Care Grade Checker Name Role Phone Unavailable Primary Care Provider Unavailabl e Allergies No known active allergies Medications finasteride (PROSCAR) 5 MG tablet Take 1 tablet (5 mg) by mouth daily 12/04/2023 Active lisinopril-hydr ochlorothiazide (PRINZIDE, ZESTORETIC) 20-12.5 MG per tablet Take 1 tablet by mouth daily 12/01/2023 Active simvastatin (ZOCOR) 20 MG tablet Take 1 tablet (20 mg) by mouth daily 11/21/2023 Active albuterol (PROAIR HFA) 108 (90 Base) MCG/ACT inhaler Inhale 3 puffs by mouth every 6 (six) hours if needed for Wheezing Active aspirin 325 MG tablet Take 1 tablet (325 mg) by mouth daily Active HYDROcodone-dax taminophen (NORCO) 7.5-325 MG per tablet TAKE 1 TABLET BY MOUTH EVERY 6 HOURS FOR 7 DAYS 01/12/2024 Active Social History Tobacco Use Types Packs/Day Years Used Date Smoking Tobacco: Never Assessed Sex and Gender Information Value Date Recorded Sex Assigned at Male 01/12/2024 7:12 AM CDT Legal Sex Male 7:11 AM CDT Gender Identity Not on file Sexual Orientation Not on file Last Filed Vital Signs Vital Sign Reading Time Taken Comments Blood Pressure 144/84 03/26/2024 8:08 AM CDT Pulse 84 03/26/2024 8:08 AM CDT Temperature 36.6 C (97.9 F) 03/26/2024 8:08 AM CDT Respiratory Rate 18 03/26/2024 8:08 AM CDT Oxygen Saturation 94% 03/26/2024 8:08 AM CDT Inhaled Oxygen Concentration - - Weight 119.7 kg (263 lb 14.4 oz) 03/26/2024 8:08 AM CDT Height 180.3 cm (5' 11 ) 02/02/2024 7:21 AM CDT Body Mass Index 36.81 02/02/2024 7:21 AM CDT Plan of Treatment Health Maintenance Due Date Last Done Comments DIABETIC FOOT EXAM 1962 Diabetes follow-up every 6 m onths by HEMOGLOBIN A1C 1962 Diabetic Eye Exam 1962 HIV Screening 1962 Hepatitis C Screening ages 1 8 to 79 once 1962 LIPID TESTING 1962 URINARY MICROALBUMIN IN DIABETES 1962 MMR VACCINES (1 of 1 - Stand dane series) 1963 YEARLY WELLNESS EXAM 1965 DEPRESSION SCREENING 1974 ADULT TETANUS 1981 Colon Cancer Screening 2007 Zoster Vaccine (Recombinant Vaccine) (1 of 2) 02/15/2012 Influenza Vaccine 03/28/2025 COVID-19 Immunization (1 - 2 024-25 season) 2025 RSV Vaccines (1 - 1-dose 75+ series) 2037 HEPATITIS A VACCINES Aged Out No long er eligible based on patient's age to complete this topic HEPATITIS B VACCINES Aged Out No long er eligible based on patient's age to complete this topic HIB VACCINES Aged Out No longer eligi ble based on patient's age to complete this topic HPV VACCINES Aged Out No longer eligi ble based on patient's age to complete this topic IPV VACCINES Aged Out No longer eligi ble based on patient's age to complete this topic MENINGOCOCCAL VACCINE Aged Out No kiran sanjana eligible based on patient's age to complete this topic Meningococcal B Vaccine Aged Out No l onger eligible based on patient's age to complete this topic Pneumococcal Vaccine: Peds t o 50 & At-Risk Patients Aged Out No longer eligible b ased on patient's age to complete this topic ROTAVIRUS VACCINES Aged Out No longer eligible based on patient's age to complete this topic
--- OUTSIDE RECORDS SUMMARY | 2025-05-20 17:17 | XMS_ITS | Clinical Summary ---
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 05/24/2021 Active metFORMIN (GLUCOPHAGE XR) 500 mg Extended Release 24 hour tablet 500 mg. 05/22/2021 Active simvastatin (ZOCOR) 20 mg tablet 20 mg. 05/22/2021 Active traMADoL (ULTRAM) 50 mg tablet 50 mg. 06/07/2021 Active lisinopril-hydro CHLOROthiazide (ZESTORETIC) 20-12.5 mg tablet Take 1 Tablet by mouth daily. Active Active Problems No known active problems Social History Tobacco Use Types Packs/Day Years Used Date Smoking Tobacco: Former Cigarettes Smokeless Tobacco: Former Sex and Gender Information Value Date Recorded Sex Assigned at Not on file Legal Sex Male 9:00 AM CDT Gender Identity Not on file Sexual Orientation Not on file Last Filed Vital Signs Vital Sign Reading Time Taken Comments Blood Pressure 139/88 06/15/2021 2:40 PM CDT Pulse 82 06/15/2021 2:40 PM CDT Temperature - - Respiratory Rate - - Oxygen Saturation - - Inhaled Oxygen Concentration - - Weight 114.8 kg (253 lb) 06/15/2021 2:40 PM CDT Height 185.4 cm (6' 1 ) 06/15/2021 2:40 PM CDT Body Mass Index 33.38 06/15/2021 2:40 PM CDT Plan of Treatment Health Maintenance Due Date Last Done Comments DTAP/TDAP/TD VACCINES (1 - Tdap) 1981 COLORECTAL SCREENING 2007 Colorectal Cancer Screening 2007 FIT-DNA Q 3 years 2007 FIT/FOBT Q 1 year 2007 Flex Sig/CT Colonography Q 5 years 2007 ZOSTER VACCINE (1 of 2) 02/15/2012 INFLUENZA VACCINE (#1) 2025 RSV VACCINE (60+ or ) (1 - 1-dose 75+ series) 2037 Insurance [facility] OPEN ACCESS O Care Teams Boiler Cleaner Relationship Specialty Start Date End Date Nelson Dickens MD [address] [id number] PCP - General Family Practice 06/03/21
[2025-05-20 18:38] VITALS: BP 156/92; PULSE 79; O2SAT 98
== END 2025-05-20 18:40 | disposition home or self-care (01) ==
PROVIDERS: Emergency Provider Emergency Medicine; PCP Family Medicine
DX: S49.92XA Unspecified injury of left shoulder and upper arm, initial encounter (principal); S16.1XXA Strain of muscle, fascia and tendon at neck level, initial encounter; E11.9 Type 2 diabetes mellitus without complications; I10 Essential (primary) hypertension; V89.2XXA Person injured in unspecified motor-vehicle accident, traffic, initial encounter; Z79.82 Long term (current) use of aspirin
CPT/HCPCS: 72125; 73030; 99284